=== PATIENT | female | born 1995 | race Caucasian/White ===

== ENCOUNTER 2023-03-20 05:20 | Emergency (ER) | payer OTHER, SELFPAY ==
[2023-03-20] VITALS (8 sets, daily range): BP systolic 136–150; BP diastolic 85–102; PULSE 99–126; RESP 16–23; TEMP 36.9; O2SAT 92–97
--- NOTE | ~2023-03-20 | XR_ITS ---
Clinical Indication: Shortness of breath PA and lateral views of the chest: Comparison: None Findings: The lungs are clear, without evidence of focal consolidation or pleural effusion. Cardiome diastinal silhouette is within normal limits. Bones and soft tissues are unremarkable. Impression: Normal chest. Reviewed, dictated and finalized at [facility]. Impression: Normal chest.
--- NOTE | 2023-03-20 06:48 | ECG_ITS ---
Measurements Intervals [place] Rate: 99 P: 32 AR: 145 QRS: 34 QRSD: 109 T: 18 QT: 314 QTc: 403 Interpretive Statements SINUS RHYTHM ATRIAL PREMATURE COMPLEXES BORDERLINE ECG NO PREVIOUS ECG AVAILABLE FOR COMPARISON Electronically Signed On 03-20-2023 8:33:40 CDT by Jama Andujar D.O.
--- NOTE | 2023-03-20 07:01 | PC.NURSE ---
This RN attempted to insert an IV saline lock and pt refused blood work, and IV. This RN explained the risks of not having an IV and blood work drawn. Pt stated she is not good with this sort of thing . Pt family member at bedside stated to patient the benefits of having the IV and blood work drawn. Pt stated she agrees to having blood drawn and IV inserted. This RN talked with charge nurse, Dontae for a second opinion on IV insertion to make pt more comfortable.
--- NOTE | 2023-03-20 07:24 | ED.SOB ---
HPI - SOB/Dyspnea General Chief Complaint: Shortness of Breath/Dyspnea Stated Complaint: SHORTNESS OF BREATH Time Seen by Provider: 03/20/23 07:24 Source: patient and family Mode of arrival: ambulatory Limitations: no limitations History of Present Illness HPI Narrative: 27 years old white female came to the emergency room by private car complaining of shortness of breath started last night, patient believes that she have seasonal allergies and wheezing. Patient been taking [id number] medication without improvement. She denies any chest pain, fever, chills, nausea, vomiting or back pain. Related Data Allergies Allergy/AdvReac Type Severity Reaction Status Date / Time No Known Allergies Allergy Verified 12/13/22 10:08 Review of Systems Review of Systems: All systems reviewed & are unremarkable except as noted in HPI and below PMFSH Past Medical History Medical History Lump of left breast 12/15/2017 - breast US shows BIRADS 3, was supposed to f/u with US in 3 months. Family History Family History Other Breast cancer Carcinoma of colon Diabetes mellitus Heartworm disease Hypertension Malignant carcinoid tumor of lung Social History Social History Smoking status: Never smoker Alcohol intake: current Alcohol use details: socially Substance use: never Substance use type: does not use Lack of Transportation: No Lack of Food: Never True Current Housing: I Have Housing Concerned About Future Housing: No Difficulty Paying Gas/Electric Bills: No Difficulty Paying for Meds: No Currently Unemployed: No Education: Bachelor's Degree Difficulty w/ Childcare or Family Care: No Living arrangements: with family Occupation/Education: occupation Additional occupation/education comments: Immigration Gender identity (if verbalized by the patient): Female Sexual Orientation (if Verbalized by the Patient): Straight or Heterosexual Exam Narrative: General appearance: Well-developed, well-nourished Skin: Normal color Head: Normocephalic, nontraumatic Eyes: Clear conjunctiva ENT: Oropharynx normal, ears normal, nose normal Neck: Supple, nontender Chest and respiratory: Airway patent, no respiratory distress, no accessory muscle use diffuse wheezing bilaterally mainly on the left side Heart: Regular rate/rhythm Abdomen: Soft, nontender, no organomegaly, quiet bowel sounds Vascular: Normal peripheral pulses, normal capillary refill. Musculoskeletal: Normal range of motion, nontender back Neurologic: Alert and oriented ?3, [employer] is normal as tested, no gross motor deficit Const: General: no acute distress Course Course Emergency Course: Improving Reevaluation(s) Reevaluation #1: Patient feeling much better compared to on arrival, declined blood work-up. Because she believes that her symptoms is allergy related Date: 03/20/23 Time: 08:35 Vital Signs Vital signs: Vital Signs Temperature 36.9 C 03/20/23 05:25 Pulse Rate 126 H 03/20/23 05:25 Respiratory Rate 19 03/20/23 05:25 Blood Pressure 150/102 H 03/20/23 05:25 Pulse Oximetry 92 03/20/23 05:25 Oxygen Delivery Room Air 03/20/23 05:25 Temperature 36.9 C 03/20/23 05:25 Pulse Rate 99 03/20/23 08:11 Respiratory Rate 23 H 03/20/23 08:11 Blood Pressure 136/85 03/20/23 06:34 Pulse Oximetry 96 03/20/23 08:18 Oxygen Delivery Room Air 03/20/23 08:18 MDM - SOB/Dyspnea MDM Narrative Medical decision making narrative: Patient presents with shortne
--- NOTE | 2023-03-20 07:54 | PCRCNOTE ---
PT. REFUSES ABG,; DR. IVERSON NOTIFIED .
[2023-03-20] MEDS: ALBUTEROL SULFATE NEB 2.5 MG/3 ML INH 5 MG INHALATION (07:56)
[2023-03-20] MEDS: predniSONE 20 MG TABLET 60 MG PO (08:13)
--- NOTE | 2023-03-20 08:20 | PC.NURSE ---
Patient refusing ABG at this time MD aware.
== END 2023-03-20 08:49 | disposition left against medical advice (07) ==
PROVIDERS: Emergency Provider Emergency Medicine; PCP Internal Medicine
DX: J98.01 Acute bronchospasm (principal)
CPT/HCPCS: 36600; 71046; 93005; 94640; 99284; J7512

== ENCOUNTER 2024-05-19 16:15 | Outpatient (CLI) | payer OTHER, SELFPAY ==
--- NOTE | ~2024-05-19 | XR_ITS ---
XR ankle RT min 3V Ordering provider: Bob Mike, History: . PAIN IN ANKLE . Comparison: None. FINDINGS: BONES: No acute fracture or dislocation. JOINT SPACES: Normal. SOFT TISSUES: Normal. IMPRESSION: No acute osseous abnormality of the right ankle. Reviewed, dictated and finalized at location A. [place]
--- NOTE | ~2024-05-19 | XR_ITS ---
XR foot RT min 3V Ordering provider: Bob Mike, History: . PAIN IN ANKLE . Comparison: None. FINDINGS: BONES: No acute fracture or dislocation. JOINT SPACES: Normal. No tarsal coalition. SOFT TISSUES: Normal. IMPRESSION: No acute osseous abnormality of the right foot. Reviewed, dictated and finalized at location A. [facility]
== END 2024-05-19 16:16 | disposition home or self-care (01) ==
PROVIDERS: PCP Internal Medicine; Visit Provider Internal Medicine
DX: M25.571 Pain in right ankle and joints of right foot (principal)
CPT/HCPCS: 73610; 73630

== ENCOUNTER 2024-10-27 15:39 | Outpatient (CLI) | payer OTHER, SELFPAY ==
--- NOTE | ~2024-10-27 | US_ITS ---
EXAMINATION: US thyroid DATE: 10/27/2024 16:01 INDICATION: Nontoxic goiter TECHNIQUE: Multiple ultrasound images of the thyroid were obtained. COMPARISON: None. FINDINGS: The right thyroid lobe measures 4.3 x 1.5 x 1.6 cm. The left thyroid lobe measures 4.4 x 1.3 x 1.6 cm. The isthmus measures 0.3cm in anterior to posterior dimension. Within the isthmus of the thyroid gland is a 7 x 3 x 7 mm nodule: Composition -solid or almost completely solid (2) Echogenicity - hypoechoic (2) Shape - wider than tall Margin - smooth Echogenic foci - none. = TR 4, moderately suspicious, greater than 1 cm = follow-up, greater than 1.5 cm = FNA There is otherwise normal echotexture and echogenicity throughout the remainder of the thyroid gland. No additional discrete nodules identified. Normal vascular flow is present. IMPRESSION: TR 4 nodule within the isthmus of the thyroid gland which is designated as moderately suspicious whic h does not meet size criteria for follow-up or FNA. Repeat ultrasound in one year may be performed fo r comparison Reviewed, dictated and finalized at location A. IMPRESSION: TR 4 nodule within the isthmus of the thyroid gland which is designated as mode rately suspicious which does not meet size criteria for follow-up or FNA. Repea t ultrasound in one year may be performed for comparison
== END 2024-10-27 15:40 | disposition home or self-care (01) ==
LOC: MICIMG 15:41
PROVIDERS: PCP Internal Medicine; Visit Provider Internal Medicine Endocrinology, Diabetes & Metabolism
DX: E04.1 Nontoxic single thyroid nodule (principal)
CPT/HCPCS: 76536